=== PATIENT | female | born 1975 | race Caucasian/White ===

== ENCOUNTER 2019-05-06 19:42 | Emergency (ER) | payer OTHER ==
[~2019-05-06 19:42] MED LIST: BACDS PO; FAMO40TA8 PO; HYDR-2952 PO; NO ROUTINE MEDS; PRED-314 PO
--- NOTE | 2019-05-06 19:44 | ER Report ---
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 She landed directly on her knee as her left foot slipped out forward. Patient complains of 4/10 pain. She's taken ibuprofen and Tylenol with some improvement. She ambulates with a mild limp. Patient denies any other injuries. Allergies: Coded Allergies: No Known Drug Allergies (Unverified , 05/06/19) Home Meds Discontinued Reported Medications Prednisone (PREDNISONE) 20 Mg Tablet, 50 MG PO DAILY, #4 08/16/12 [No Routine Meds] No Conflict Check 08/16/12 Discontinued Scripts Famotidine (PEPCID) 40 Mg Tablet, 40 MG PO BID, #60 TAB Prov:JINNY SANTOYO MD 08/24/14 Reviewed Nurses Notes: Yes Old Medical Records Reviewed: Yes Hx Smoking: No Constitutional Vital Sign - Last 24 Hours 05/06/19 19:45 Temp 98.1 Pulse 94 Resp 16 B/P (MAP) 126/108 Pulse Ox 93 O2 Delivery Room Air Physical Exam General appearance: Alert no distress. Respiratory: Chest is non tender, lungs are clear to auscultation. Cardiac: Regular rate and rhythm Extremities: Examination of the right knee reveals no effusion, bruising or abrasions. There is decreased range of motion. Ligament. Intact on stressing. Doris's maneuver shows no dysfunction. The right foot is neurovascularly intact. The ankle is unremarkable DIFFERENTIAL DIAGNOSIS: After history and physical exam differential diagnosis was considered for sprain, strain, fracture, dislocation, contusion Medical Decision Making EKG/Imaging Imaging X-ray: Right knee, 3 views was obtained. I viewed the images myself on the PACS system. My interpretation of the images is: No fracture no dislocation or malalignment. The radiologist interpretation had no clinically significant variation from this interpretation. ED Course/Re-evaluation ED Course Patient was admitted to an examination room. H&P was done. The differential diagnosis was considered. Patient had diagnostic x-rays performed which were unremarkable. She is advised to take it easy. She is advised ibuprofen 600 mg 3 times daily. No work restrictions are indicated. Patient may return to regular duty. Decision to Disposition Date: May 06, 2019 Decision to Disposition Time: 20:08 Depart Departure Latest Vital Signs Vital Signs Date Time Temp Pulse Resp B/P (MAP) Pulse Ox O2 Delivery O2 Flow Rate FiO2 05/06/19 19:45 98.1 94 16 126/108 93 Room Air Impression: Primary Impression: Contusion of right knee and lower leg Condition: Improved Disposition: HOME OR SELF-CARE Referrals: JONNATHAN SANTANA DO (PCP) New Scripts No Active Prescriptions or Reported Meds Patient Instructions: Contusion in Adults (ED) Additional Instructions: Take ibuprofen 200 mg 3 tablets 3 times a day with food Apply ice packs to the affected knee for 2 days Follow-up with primary care if unimproved in 3-5 days. Problem Qualifiers Primary Impression: Contusion of right knee and lower leg Encounter type: initial encounter Qualified Codes: S80.01XA - Contusion of right knee, initial encounter; S80.11XA - Contusion of right lower leg, initial encounter SHEKHAR JENNINGS DO May 06, 2019 19:44
[2019-05-06 19:45] VITALS: BP 126/108
--- NOTE | 2019-05-06 20:47 | RADIOLOGY IMAGING REPORT ---
FACILITY: [facility] - [place] PATIENT NAME: Elodia Houston : 1975 MR: [id number] V: [id number] EXAM DATE: ORDERING PHYSICIAN: SHEKHAR JENNINGS TECHNOLOGIST: Location: [facility] - [place] Patient: Elodia Houston : 1975 Visit/Account:[id number] Date of Sevice: 05/06/2019 EXAMINATION: Right knee 3 views HISTORY: Fall. Pain. COMPARISON: None. FINDINGS: Bones of the right knee demonstrate normal alignment. No evidence of fracture or dislocation. Joint s paces are preserved. Soft tissues are radiographically unremarkable. No significant knee joint effusi on is evident. IMPRESSION: No acute osseous findings at the right knee. Report Dictated By: Artie Bermeo MD at 05/06/2019 8:39 PM Report E-Signed By: Artie Bermeo MD at 05/06/2019 8:40 PM WSN:[id number]
== END 2019-05-06 20:29 | disposition home or self-care (01) ==
LOC: ER 19:45
DX: S80.11XA Contusion of right lower leg, initial encounter (principal); W01.0XXA Fall on same level from slipping, tripping and stumbling without subsequent striking against object, initial encounter; Y93.H9 Activity, other involving exterior property and land maintenance, building and construction; Y99.0 Civilian activity done for income or pay
CPT/HCPCS: 99283